=== PATIENT | female | born 1935 | race Caucasian/White ===

== ENCOUNTER 2017-09-17 10:00 | Inpatient (IN) | payer OTHER ==
--- NOTE | 2017-09-17 10:09 | EDPHY ---
H & P Time Seen by Provider: 09/17/17 10:07 HPI/ROS: CHIEF COMPLAINT: Expressive aphasia HISTORY OF PRESENT ILLNESS: 81-year-old female with a history of prior CVA and cardiac disease presents with expressive aphasia. She was at the dining table just prior to arrival, when she slumped over and fell to the floor. She awoke promptly and had expressive aphasia. The expression of aphasia has now completely resolved. She feels back to normal. She does not know whether she is on anticoagulation or not. REVIEW OF SYSTEMS: complete 10 point ROS negative except at noted in the HPI - Physical Exam Exam: This exam is performed after return from CT: General Appearance: Alert, pleasant, difficulty with word-finding Eyes: Pupils equal and round, no conjunctival pallor or injection ENT, Mouth: Mucous membranes moist Neck: Normal inspection Respiratory: Lungs are clear to auscultation Cardiovascular: Regular rate and rhythm Gastrointestinal: Abdomen is soft and nontender Neurological: Alert, oriented to person and place, difficulty with word finding , right lower extremity weakness, able to raise the right lower extremity off the gurney slightly and transiently Skin: Warm and dry Extremities: Nontender, no pedal edema Psychiatric: Mood and affect normal Constitutional: Initial Vital Signs Heart Rate 49 L 09/17/17 10:14 Respiratory Rate 18 09/17/17 10:14 Blood Pressure 186/80 H 09/17/17 10:14 O2 Sat (%) 94 09/17/17 10:14 O2 Delivery Mode Room Air Allergies/Adverse Reactions: No Known Allergies Allergy (Unverified 09/17/17 10:19) Home Medications: Medication Instructions Recorded Albuterol [Proventil Inhaler HFA 1 - 2 puffs IH Q4H PRN 09/17/17 (*)] Atorvastatin Calcium [Lipitor 40 40 mg PO HS 09/17/17 mg (*)] Clopidogrel Bisulfate [Plavix (*)] 75 mg PO DAILY 09/17/17 Fluticasone/Salmeter 100/50Mcg 1 puffs IH BID 09/17/17 [Advair 100/50 (*)] Metoprolol Tartrate [Lopressor 50 50 mg PO BID 09/17/17 mg (*)] OLANZapine [Zyprexa] 5 mg PO HS 09/17/17 Potassium Chloride [Klor-Con 10] 20 meq PO DAILY 09/17/17 Medical Decision Making - Diagnostics EKG Interpretation: EKG interpreted by me reveals sinus bradycardia, rate 49, diffuse T-wave changes , nonspecific. Interpretation: Borderline EKG Imaging Results: Altered mental status including but not limited to hypoglycemia, infectious process, electrolyte abnormality, head injury, CVA, and intoxicants. ED Course/Re-evaluation: This patient presents as a stroke alert. My initial hallway exam reveals normal speech, right lower extremity weakness. She was sent directly to CT scan. Dr. Peraza from [facility] consulted while the patient was in CT scan. [facility] was contacted for medication list. She is apparently taking Coumadin, though she states that she recently stopped coumadin. She self administers her medications, so Varun is unable to verify this. 1030am Dr. Peraza interviewed and examined the patient. He feels that she is not a tPA candidate, as her symptoms are resolving. He suggests CTA of the head and neck. If her INR is less than 1.6 and she develops worsening symptoms , he requests that we call him back for consideration of tPA. Creatinine 1.7, d /w Dr. Booth, will proceed with CTA and give pt gentle IVF. CTA of the head and neck revealed no evidence of thrombus. Bilateral ICA atherosclerosis. Differential Diagnosis: Altered mental status including but not limited to hypoglycemia, infectious process, electrolyte abnormality, head injury, CVA, and intoxicants. - Data Points Laboratory Results: Laboratory Results 09/17/17 10:19 09/17/17 10:19 Medications Given: Acetaminophen (Tylenol) 650 mg PO Q4HRS PRN PRN Reason: Pain, Mild/Fever, Can Take PO Stop: 03/16/18 16:45 Last Admin: 09/17/17 19:36 Dose: 650 mg Albuterol/Ipratropium (Duoneb) 3 ml IH Q6HRS PRN PRN Reason: Short of Breath/Dyspnea Stop: 03/16/18 11:52 Last Admin: 09/17/17 12:04 Dose: 3 ml Atorvastatin Calcium (Lipitor) 40 mg PO HS ROSA MARIA Stop: 03/16/18 20:59 Last Admin: 09/17/17 20:01 Dose: 40 mg Clopidogrel Bisulfate (Plavix) 75 mg PO DAILY ROSA MARIA Stop: 03/17/18 08:59 Last Admin: 09/18/17 10:04 Dose: 75 mg Sodium Chloride (Ns) 1,000 mls @ 75 mls/hr IV CONT ROSA MARIA Stop: 09/19/17 06:19 Last Admin: 09/17/17 19:32 Dose: 1,000 mls Olanzapine (Olanzapine) 5 mg PO HS ROSA MARIA Stop: 03/16/18 20:59 Last Admin: 09/17/17 20:01 Dose: 5 mg Fluticasone/Salmeterol (Advair) 1 puffs IH BID ROSA MARIA Stop: 03/16/18 20:59 Last Admin: 09/18/17 08:34 Dose: Not Given Discontinued Medications Acetaminophen (Tylenol) 1,000 mg PO ONCE ONE Stop: 09/17/17 11:49 Last Admin: 09/17/17 11:52 Dose: 1,000 mg Aspirin (Aspirin) 81 mg PO ONCE ONE Stop: 09/17/17 17:03 Last Admin: 09/17/17 17:44 Dose: 81 mg Sodium Chloride (Ns) 500 mls @ 1,000 mls/hr IV EDNOW ONE PRN Reason: Protocol Stop: 09/17/17 11:04 Last Admin: 09/17/17 11:01 Dose: 500 mls Departure - Departure Disposition: [facility]
--- NOTE | 2017-09-17 10:22 | CPEKG ---
Heart Rate: 49 RR Interval: 1224 P-R Interval: 176 QRSD Interval: 74 QT Interval: 460 QTC Interval: 416 P Waddy: 53 QRS Waddy: 6 T Wave Waddy: -49 EKG Severity - BORDERLINE ECG - EKG Impression: SINUS BRADYCARDIA EKG Impression: BORDERLINE T ABNORMALITIES, INFERIOR LEADS Electronically Signed By: Liz Calderon 17-Sep-2017 15:01:25
[2017-09-17] MEDS ORDERED: NS 500 ML IV ONE (10:35)
[2017-09-17 10:36] LABS: INR 1.05 (0.83-1.16); PROTIME(PATIENT) 13.9 SEC (12.0-15.0)
[2017-09-17] MEDS ORDERED: IOPAMIDOL (ISOVUE 370) 100 ML BTL IV ONE (10:40)
[2017-09-17 10:52] LABS: PLATELET COUNT 129 10^3/uL (150-400)
[2017-09-17] MEDS ORDERED: ACETAMINOPHEN 500 MG TAB PO ONE (11:48)
[2017-09-17] MEDS ORDERED: ACETAMINOPHEN 500 MG TAB ONE (11:50)
[2017-09-17] MEDS ORDERED: IPRATROPIUM/ALBUTEROL 3 ML DEYVIAL IH PRN (11:53)
[2017-09-17] MEDS ORDERED: IPRATROPIUM/ALBUTEROL 3 ML DEYVIAL ONE (12:03)
[2017-09-17] MEDS ORDERED: ONDANSETRON 4 MG/2 ML VIAL IVP PRN (16:46)
[2017-09-17] MEDS ORDERED: ONDANSETRON DISINTEGRATING 4 MG TAB PO PRN (16:46)
--- NOTE | 2017-09-17 16:56 | PDGENHP ---
History and Physical - Chief Complaint confusion, expressive aphasia - History of Present Illness This is a 81 yo female with hx of CVA, HLD, and HTN who was at her long-term and noted to be confused. She was asked questions and was not able to respond and EMS was called. It was initially reported that Expressive Aphasia was the primary complaint, but upon discussion with the pt's daughter, the pt was reportedly confused and unable to answer questions and slouched over a table. The pt cannot recall any events. The patient is able to speak at this time w/o any difficulty. She does not appear confused but the pt's daughter says she is not back to baseline. She does not have any focal deficits. She presented to the E.D. with stroke alert. [facility] was called. No TPA CT Brain was negative. CTA Head negative CTA Neck shows small ulcerated plaque in the left carotid bulb.? source of TIA EKG shows sinus bradycardia She takes Metoprolol 50mg bid for HTN. This was recently increased She has a hx of CVA, one per her daughter, and had been started on Warfarin for this?? She had a retroperitoneal bleed in June which was managed at [facility] and at that time she was transitioned to Plavix. It is unclear if she has ever been on Aspirin alone. She does not have a hx of CAD. She does have a hx of AAA which is being monitored closely. She denies urinary symptoms, no resp symptoms either. PMHx: Chronic renal insufficiency, stage 3, unclear Cr baseline HLD AAA CVA Kidney failure Social: lives in long-term Fmx: [place] History Information - Allergies/Home Medication List Allergies/Adverse Reactions: No Known Allergies Allergy (Unverified 09/17/17 10:19) Home Medications: Albuterol [Proventil Inhaler HFA (*)] 1 - 2 puffs IH Q4H PRN 09/17/17 [Last Taken Unknown] Atorvastatin Calcium 09/17/17 [Last Taken Unknown] Atorvastatin Calcium [Lipitor 40 mg (*)] 40 mg PO HS 09/17/17 [Last Taken Unknown] Clopidogrel Bisulfate [Plavix (*)] 75 mg PO DAILY 09/17/17 [Last Taken Unknown] Fluticasone/Salmeter 100/50Mcg [Advair 100/50 (*)] 1 puffs IH BID 09/17/17 [ Last Taken Unknown] Metoprolol Tartrate [Lopressor 50 mg (*)] 50 mg PO BID 09/17/17 [Last Taken Unknown] OLANZapine [Zyprexa] 5 mg PO HS 09/17/17 [Last Taken Unknown] Potassium Chloride [Klor-Con 10] 20 meq PO DAILY 09/17/17 [Last Taken Unknown] I have personally reviewed and updated: medical history, social history - Social History Smoking Status: Light smoker Review of Systems Review of Systems: ROS: 10pt was reviewed & negative except for what was stated in HPI & below Physical Exam Physical Exam: Temp Pulse Resp BP Pulse Ox 37.3 C 55 L 18 143/88 H 92 09/17/17 15:23 09/17/17 15:23 09/17/17 15:23 09/17/17 15:23 09/17/17 15:23 Constitutional: no apparent distress Eyes: PERRL, EOMI Ears, Nose, Mouth, Throat: moist mucous membranes Cardiovascular: regular rate and rhythym, No edema Respiratory: no respiratory distress, no rales or rhonchi, clear to auscultation Gastrointestinal: normoactive bowel sounds, soft, non-tender abdomen Skin: warm Neurologic: AAOx3, CN II-XII Intact, No facial droop Psychiatric: interacting appropriately, not anxious, not encephalopathic Lymph, Heme, Immunologic: No petechiae Lab Data & Imaging Review 09/17/17 10:19 09/17/17 10:19 WBC 6.51 10^3/uL (3.80-9.50) 09/17/17 10:19 RBC 4.69 10^6/uL (4.18-5.33) 09/17/17 10:19 Hgb 13.7 g/dL (12.6-16.3) 09/17/17 10:19 POC Hgb 14.6 gm/dL (12.6-16.3) 09/17/17 10:23 Hct 43.7 % (38.0-47.0) 09/17/17 10:19 POC Hct 43 % (38-47) 09/17/17 10:23 MCV 93.2 fL (81.5-99.8) 09/17/17 10:19 MCH 29.2 pg (27.9-34.1) 09/17/17 10:19 MCHC 31.4 g/dL (32.4-36.7) L 09/17/17 10:19 RDW 14.3 % (11.5-15.2) 09/17/17 10:19 Plt Count 129 10^3/uL (150-400) L 09/17/17 10:19 MPV 9.0 fL (8.7-11.7) 09/17/17 10:19 Neut % (Auto) 65.9 % (39.3-74.2) 09/17/17 10:19 Lymph % (Auto) 22.6 % (15.0-45.0) 09/17/17 10:19 Bent % (Auto) 8.9 % (4.5-13.0) 09/17/17 10:19 Eos % (Auto) 1.5 % (0.6-7.6) 09/17/17 10:19 Baso % (Auto) 0.6 % (0.3-1.7) 09/17/17 10:19 Nucleat RBC Rel Count 0.0 % (0.0-0.2) 09/17/17 10:19 Absolute Neuts (auto) 4.29 10^3/uL (1.70-6.50) 09/17/17 10:19 Absolute Lymphs (auto) 1.47 10^3/uL (1.00-3.00) 09/17/17 10:19 Absolute Monos (auto) 0.58 10^3/uL (0.30-0.80) 09/17/17 10:19 Absolute Eos (auto) 0.10 10^3/uL (0.03-0.40) 09/17/17 10:19 Absolute Basos (auto) 0.04 10^3/uL (0.02-0.10) 09/17/17 10:19 Absolute Nucleated RBC 0.00 10^3/uL (0-0.01) 09/17/17 10:19 Immature Gran % 0.5 % (0.0-1.1) 09/17/17 10:19 Immature Gran # 0.03 10^3/uL (0.00-0.10) 09/17/17 10:19 PT 13.9 SEC (12.0-15.0) 09/17/17 10:19 INR 1.05 (0.83-1.16) 09/17/17 10:19 APTT 33.9 SEC (23.0-38.0) 09/17/17 10:19 POC Sodium 145 mEq/L (135-145) 09/17/17 10:23 Sodium 147 mEq/L (135-145) H 09/17/17 10:19 POC Potassium 4.2 mEq/L (3.3-5.0) 09/17/17 10:23 Potassium 4.5 mEq/L (3.5-5.2) 09/17/17 10:19 POC Chloride 109 mEq/L (97-110) 09/17/17 10:23 Chloride 108 mEq/L (97-110) 09/17/17 10:19 Carbon Dioxide 25 mEq/l (22-31) 09/17/17 10:19 Anion Gap 14 mEq/L (8-16) 09/17/17 10:19 POC BUN 27 mg/dL (7-23) H 09/17/17 10:23 BUN 26 mg/dL (7-23) H 09/17/17 10:19 Creatinine 1.7 mg/dL (0.6-1.0) H 09/17/17 10:19 POC Creatinine 1.7 mg/dL (0.6-1.0) H 09/17/17 10:23 Estimated GFR 29 09/17/17 10:19 Glucose 93 mg/dL (70-100) 09/17/17 10:19 POC Glucose 96 mg/dL (70-100) 09/17/17 10:23 Calcium 9.2 mg/dL (8.5-10.4) 09/17/17 10:19 Troponin I < 0.012 ng/mL (0.000-0.034) 09/17/17 10:19 Urine Color PALE YELLOW 09/17/17 12:00 Urine Appearance CLEAR 09/17/17 12:00 Urine pH 7.0 (5.0-7.5) 09/17/17 12:00 Ur Specific [place] 1.016 (1.002-1.030) 09/17/17 12:00 Urine Protein NEGATIVE (NEGATIVE) 09/17/17 12:00 Urine Ketones NEGATIVE (NEGATIVE) 09/17/17 12:00 Urine Blood NEGATIVE (NEGATIVE) 09/17/17 12:00 Urine Nitrate NEGATIVE (NEGATIVE) 09/17/17 12:00 Urine Bilirubin NEGATIVE (NEGATIVE) 09/17/17 12:00 Urine Urobilinogen NEGATIVE EU (0.2-1.0) 09/17/17 12:00 Ur Leukocyte Esterase NEGATIVE (NEGATIVE) 09/17/17 12:00 Urine Glucose NEGATIVE (NEGATIVE) 09/17/17 12:00 Assessment & Plan Assessment: #Sinus Bradycardia #Hx of HTN #transient encephalopathy #?TIA #ulcerated plaque in left Carotid Bulb #HLD #chronic renal failure, stage III. #Psych: cont Zyprexa Plan: It is unclear if the pt has expressive aphasia or was confused due to other etiology. She is noted to be bradycardic. In addition to the possibility of TIA , she could have a had low cerebral perfusion due to the bradycardia or hypotension. Her daughter is concerned that she may have an underlying infection , but I dont see any obvious e/o of this. UA was unremarkable. She doesnt have Leukocytosis. I will hold her Metoprol today. check TTE, telemetry. Neuro to see tomorrow. I will give her Aspirin in addition to her scheduled Plavix. She was previously on AC with coumadin for unclear reason. She denies a hx of Afib. She did have a retroperitoneal bleed and she was taken off Coumadin Will provide IVF hydration in light of contrast given on a pt with advance renal disease SCDs DNR
[2017-09-17] MEDS ORDERED: NS 1,000 ML IV SCH (17:00)
[2017-09-17] MEDS ORDERED: ASPIRIN 81 MG CHEWABLE TAB PO ONE (17:02)
--- NOTE | 2017-09-17 17:25 | PDMN ---
Medical Necessity Medical necessity: Patient meets inpatient criteria per physician note and [facility] M -360 TIA (stroke alert called for new confusion/expressive aphasia; persistent symptoms: ongoing confusion after resolution of expressive aphasia; history of HTN, past CVA, then retroperitoneal bleed in Jun, 2017 while anticoagulated on warfarin; hx CKD, stage 3, and known AAA; anticipated LOS > 2 midnights for ongoing IV hydration, med adjustment, PT/OT eval, neuro consult.)
[2017-09-17] MEDS: ACETAMINOPHEN 325 MG TAB PO PRN (19:36)
[2017-09-17] MEDS: ATORVASTATIN CALCIUM 40 MG TAB PO SCH (20:01)
[2017-09-17] MEDS: OLANZapine 5 MG TAB PO SCH (20:01)
[2017-09-17] MEDS: FLUTICASONE/SALMETER 100/50MCG DISKUS IH SCH (21:44)
[2017-09-18 05:02] LABS: PLATELET COUNT 123 10^3/uL (150-400)
[2017-09-18] MEDS: FLUTICASONE/SALMETER 100/50MCG DISKUS IH SCH ×2 (08:34→21:59)
--- NOTE | 2017-09-18 09:45 | NEUROPROG ---
Assessment: [id number] - Neurology Consult: - CC: Dr. Nikko Angulo consulted neurology for confusion. Results placed in EMR for his review. - HPI: The patient is a [facility] with a prior stroke. It was reported she was on warfarin for this but in June 2017 had a retroperitoneal bleed so was changed to Plavix. She was noted to be confused on 09/17/17 so was brought to [facility] ER. A head CT and CTA head/neck showed no acute changes but telemetry did show afib/aflutter. The patient cannot recall being confused and did not appear confused in the ER but her daughter reported she did not seem to be at her baseline. She had no focal neurologic deficits. Pt initially seen on 09/18/17. She reported her confusion had resolved and she now felt back to normal. Her telemetry indicated she had bouts of atrial fibrillation. Her neurologic exam on 09/18/17 was non-focal. I ordered a brain MRI w/o con to further evaluate her confusion. - PMHx: chronic renal disease, HLD, AAA, stroke, retroperitoneal bleed on warfarin in June 2017 - Home Meds: albuterol, Lipitor 40 mg qd, plavix 75 mg qd, metoprolol, flonase/ salmeter, zyprexa, Klor-Con - SHx: [facility] in [facility] FHx: [place] - ROS: Pt denied acute fever, total vision loss, active severe chest pain, respiratory failure, total body severe rash, total bowel/bladder incontinence, psychosis, active seizures, or active bleeding - O: VS reviewed General: Alert Eyes: Fundoscopic exam not able to visualize optic disks CV: Heart RRR, no murmur, no carotid bruit Lungs: Clear to auscultation bilaterally, no rhonchi or rales Neuro: - Mental: . Oriented x person/date . concentration appears normal . speech fluency/comprehension normal . memory appears normal . fund of knowledge appear intact - Cranial Nerves: . II: PERRL, VFFTC . III/IV/: EOMI, no nystagmus, normal smooth pursuits, no Ptosis . V: facial sensation intact to LT . VII: face symmetric to eye closure and smile . VIII: hearing intact to conversation . IX/X: uvula raises symmetrically . XI: SCM 5/5 B/L strength . XII: tongue protrudes midline w/nl strength - Motor: . Tone: normal tone in all 4 extremity . Strength: no pronator drift, strength 5/5 throughout (B/L delt, bic, tri, hand lining presser, hf/he, df/pf) - Reflexes: B/L bic 2/4 - Sensory: all 4 extremity intact to light touch - Coord: [id number] wnl, RICCARDO wnl, [id number] wnl - Gait: deferred - NIH SS 0 - Labs: 09/17/17- CBC Plt 129L, Chem BUN 27H Ct 1.7H - Rads: 09/17/17- Head CT: Loss of culver-white differentiation in the right occipital lobe , which could be related to subacute or old infarct. Diffuse cerebral atrophy with periventricular and subcortical low attenuation, consistent with chronic microvascular ischemic gliosis. (I personally visualized the images on 09/17/17) 09/17/17- CTA head/neck: no significant carotid stenosis, small ulcerated plaque in L carotid bulb 09/17/17- Telemetry: afib/aflutter - Assessment: 1. Confusion on 09/17/17: Unclear cause but patient was noted on telemetry to be in afib at times. Will further assess with brain MRI w/o con. - 2. Atrial fibrillation: Defer management to hospitalist - Plan: - Continue Plavix 75 mg qd however we will need to consider changing to oral anticoagulation at discharge if her telemetry reading showing afib is correct ( prior stroke and afib is indication for anticoagulation) - Brain MRI w/o con to evaluate for stroke - TTE - PT/OT consult for any rehab needs - LDL goal < 70, lab pending - H1AC goal < 7.0, lab pending - Blood pressure goal < 140/90 - F/U in neurology clinic 1-4 weeks after hospital discharge Objective: Vital Signs Temp Pulse Resp BP Pulse Ox 36.9 C 57 L 16 160/95 H 98 09/18/17 07:56 09/18/17 07:56 09/18/17 07:56 09/18/17 07:56 09/18/17 07:56 Laboratory Results 09/18/17 04:50 09/18/17 04:50 09/17/17 09/18/17 09/19/17 05:59 05:59 05:59 Intake Total 750 Balance 750 PT 13.9 SEC (12.0-15.0) 09/17/17 10:19 INR 1.05 (0.83-1.16) 09/17/17 10:19 Allergies/Adverse Reactions: No Known Allergies Allergy (Unverified 09/17/17 10:19)
[2017-09-18] MEDS: CLOPIDOGREL BISULFATE 75 MG TAB PO SCH (10:04)
--- NOTE | 2017-09-18 10:31 | ECHO ---
[email or web address] [address] [address] Main: [phone] Fax: Transthoracic Echocardiogram Name: ANGELES AGOSTO MR#: [id number] Study Date: 09/18/2017 Study Time: 07:46 AM Date of : 1935 Age: 81 year(s) Height: 167.6 cm (66 in.) Weight: 60.78 kg (134 lb.) BSA: 1.69 m2 Gender: Female Examination: Echo Indication: Bradycardia/TIA Image Quality: Contrast: Requested by: Nikko Angulo BP: 154 mmHg/99 mmHg Heart Rate: Rhythm: Indication: Bradycardia/TIA Procedure Staff Lens Mold Setter: Kaleigh Gray RDCS Reading Physician: Emanuel Jackson MD Requesting Provider: Conclusions: Normal global systolic LV function. The ejection fraction is estimated to be 65-70 %. Mild mitral valve regurgitation is present. Trivial to mild aortic valve regurgitation. Mild tricuspid regurgitation is present. The pulmonary artery pressure is moderately increased. RVSP is 67mmHG.. Measurements: Chambers Valvular Assessment AV/MV Valvular Assessment TV/PV Normal Normal Normal Name Value Range Name Value Range Name Value Range Ao Shelby (2D): 2.8 cm (1.4 cm-2.6 AV Vmax: 1.38 m/s (1 m/s-1.7 TR Vmax: 3.94 mm/s ( - ) cm) m/s) TR PGmax: 62 mmHg ( - ) IVSd (2D): 0.8 cm (0.6 cm-1.1 AV maxP mmHg ( - ) syst. PAP: 67 mmHg ( - ) cm) AV meanP mmHg ( - ) LVDd (2D): 4.5 cm (3.9 cm-5.3 AR (PHT): 651 ms ( - ) cm) MV E Vmax: 1.02 m/s ( - ) LVDs (2D): 2.6 cm (2.1 cm-4 MV A Vmax: 0.52 m/s ( - ) cm) MV E/A: 1.96 ( - ) LVPWd (2D): 1.0 cm ( - ) LVEF (MOD4): 72 % (>=55 %) EF Range: 65-70 % Continued Measurements: Chambers Valvular Assessment AV/MV Valvular Assessment TV/PV Name Value Name Value Name Value LADs Lon.8 cm MV E/E' Septal: 21.30 CVP (est.): 5 mmHg LA Area: 14.9 cm2 Patient: ANGELES AGOSTO Study Date: 09/18/2017 Page 1 of 2 07:46 AM MV E/E' Lateral: 13.40 AR Vmax: 5.28 cm/s Findings: Left Ventricle: Normal size left ventricle. Mild concentric LV hypertrophy. Normal global systolic LV function. The ejection fraction is estimated to be 65-70 %. No regional wall motion abnormality. Diastolic dysfunction is present. . Right Ventricle: Normal size right ventricle. Left Atrium: The left atrium is normal in size. Right Atrium: The right atrium is normal in size. Mitral Valve: Mild mitral valve regurgitation is present. Calcific anterior mitral valve leaflet.. Aortic Valve: The aortic valve is normal in appearance and function. Trivial to mild aortic valve regurgitation. Tricuspid Valve: The tricuspid valve is normal in appearance and function. Mild tricuspid regurgitation is present. The pulmonary artery pressure is moderately increased. RVSP is 67mmHG.. Pulmonic Valve: Pulmonary valve not well visualized. Aorta: The aorta is normal. Pericardium: Trace anterior pericardial effusion.. (No Signature Object) Patient: ANGELES AGOSTO Study Date: 09/18/2017 Page 2 of 2 07:46 AM [id number]
--- NOTE | 2017-09-18 15:42 | HOSPPROG ---
Hospitalist Progress Note Assessment/Plan: #Sinus Bradycardia #?Afib on Tele. -Exam does not show Irr/irr -EKG previously showed sinus Alberto #Hx of HTN #transient encephalopathy #?TIA -negative w/u thus far including negative MRI #ulcerated plaque in left Carotid Bulb #HLD #chronic renal failure, stage III. #Psych: cont Zyprexa Plan: The pt has no confusion or expressive aphasia at this time. She does cont to have bradycardia. Tele has shown ?Afib. I will recheck an EKG and continue to monitor overnight. If she really does have Afib, we can stop the Plavix and switch her to Coumadin on discharge likely tomorrow. She has a hx of retroperitoneal bleed and she will need close monitoring of her INR. Would not bridge. If no Afib is diagnosed, then she will need to follow with Cards for event monitor and we can continue the Plavix alone. IF bradycardia worse, will need cards consult. Cont to hold Metoprolol As for the etiology of confusion and aphasia, one possibility is the TIA. she could have also had low cerebral perfusion due to the bradycardia or hypotension. There is no e/o infection. UA was normal PT SCDs DNR Plan per above was discussed with Neurology Subjective: feels better. no cp or sob. no n/v. + bradycardia Objective: Vital Signs Temp Pulse Resp BP Pulse Ox 36.4 C 57 L 16 140/91 H 94 09/18/17 11:55 09/18/17 11:55 09/18/17 11:55 09/18/17 11:55 09/18/17 11:55 Laboratory Results 09/18/17 04:50 09/18/17 04:50 09/17/17 09/18/17 09/19/17 05:59 05:59 05:59 Intake Total 750 300 Balance 750 300 PT 13.9 SEC (12.0-15.0) 09/17/17 10:19 INR 1.05 (0.83-1.16) 09/17/17 10:19 - Physical Exam Constitutional: no apparent distress Eyes: PERRL, EOMI Ears, Nose, Mouth, Throat: moist mucous membranes Cardiovascular: bradycardia Respiratory: no respiratory distress, no rales or rhonchi, clear to auscultation Gastrointestinal: normoactive bowel sounds, soft, non-tender abdomen Skin: warm Neurologic: AAOx3 Psychiatric: interacting appropriately, not anxious, not encephalopathic Lymph, Heme, Immunologic: No petechiae ICD10 Worksheet Patient Problems: Problems Problem Status Onset TIA (transient ischemic attack) Acute - ICD10 Problem Qualifiers (1) TIA (transient ischemic attack)
--- NOTE | 2017-09-18 16:24 | ASMTCMCOM ---
CM Note CM Note Notes: Pt in for CVA, has a history of CVA. Pt does have bradycardia. Neurology consulting. [facility] and has local family support. PT/OT rec home. CM to continue to follow. Date Signed: 09/18/2017 04:23 PM Electronically Signed By:MERLENE Luong
--- NOTE | 2017-09-18 16:40 | CPEKG ---
Heart Rate: 62 RR Interval: 968 P-R Interval: 172 QRSD Interval: 78 QT Interval: 440 QTC Interval: 447 P Acworth: 60 QRS Acworth: 5 T Wave Acworth: -37 EKG Severity - BORDERLINE ECG - EKG Impression: SINUS RHYTHM EKG Impression: NON-SPECIFIC ST DEPRESSION INFERIOR AND LATERAL LEADS, CONSIDER INFERIOR AND EKG Impression: LATERAL ISCHEMIA. Electronically Signed By: Gunnar Fairbanks 19-Sep-2017 06:46:11
[2017-09-18] MEDS: OLANZapine 5 MG TAB PO SCH (21:19)
[2017-09-18] MEDS: ATORVASTATIN CALCIUM 40 MG TAB PO SCH (21:19)
[2017-09-19] MEDS ORDERED: hydrALAZINE 10 MG TAB PO PRN (06:28)
[2017-09-19] MEDS: FLUTICASONE/SALMETER 100/50MCG DISKUS IH SCH ×2 (09:29→21:49)
[2017-09-19] MEDS: CLOPIDOGREL BISULFATE 75 MG TAB PO SCH (10:30)
[2017-09-19] MEDS ORDERED: METOPROLOL TARTRATE 25 MG TAB PO SCH (11:15)
[2017-09-19] MEDS: amLODIPine BESYLATE 5 MG TAB PO SCH (12:43)
--- NOTE | 2017-09-19 13:21 | NEUROPROG ---
Assessment: [id number] - Neurology Consult: - CC: F/U for rhabdomyolysis causing b/l proximal leg weakness - Narrative Summary: Pt is homeless. He noted on 09/15/17 his left greater than right leg felt weak. He denied urinary incontinence but has some lower and mid back pain. He denied fever or recent IV drug abuse (last abused in 2014). Weakness was proximal legs and progressed to the point of preventing ambulation so he came to the [facility] ER on 09/17/17. He also complained of leg pain. Neurosurgery saw the patient and found no indications for surgery. CK was very high at 7,155 so it appears he has rhabdomyolysis to explain his symptoms. I initially saw the patient on . His CK was decreasing to the 1999s. He reported his legs felt less weak and painful today but were still a problem. His neurologic exam on 09/18/17 showed bilateral proximal leg weakness. He was improving. - HPI: F/U 09/19/17. Pt denied new complaints. His CK continues to downtrend to 916 and he is clinically improving. Blood cultures show no growth, aldolase still pending. - PMHx: IV drug abuse, asthma vs panic disorder, antisocial personality disorder, hernia - SHx: +tobacco, homeless FHx: NC - ROS: Pt denied acute fever, total vision loss, active severe chest pain, respiratory failure, total body severe rash, total bowel/bladder incontinence, psychosis, active seizures, or active bleeding - Labs: 09/17/17- CBC WBC 19.65H, Chem CO2 17L Anion gap 22H, CK 7155H 09/18/17- CBC WBC 13.99H, ESR 11, CMP AST 252H, ALT 86H, CK 2846, CRP 64.4H, TSH wnl, B12 604, Hep C ab neg, HIV 1 and 2 negative, 09/19/17- CBC unremarkable, CK 916H - Rads: 09/17/17- T/L Spine MRI w/o con: mild lumbar degenerative changes w/o acute findings, normal thoracic spine (I personally visualized the images on 09/17/17) - Assessment: 1. Rhabdomyolysis causing bilateral proximal leg weakness/pain: Unclear cause but inflammatory myopathy or metabolic myopathy (alcohol or drug abuse can cause ) are possible. Condition is improving with decreasing CK values and improving clinical symptoms. - Plan: - Aldolase pending to look for any inflammatory myopathy - PT/OT consult to determine any rehab needs - Symptoms are improving with IV fluid, no additional therapy needed at this time - F/U in neurology clinic 1-4 weeks after discharge, we can consider an EMG/NCS at that time to further investigate the cause of his myopathy - 35 min spent with patient, majority of time spent counseling on condition to include prognosis and therapeutic plan. Objective: Vital Signs Temp Pulse Resp BP Pulse Ox 36.4 C 69 23 H 165/102 H 93 09/19/17 11:49 09/19/17 11:49 09/19/17 11:49 09/19/17 12:43 09/19/17 11:49 Laboratory Results 09/18/17 04:50 09/18/17 04:50 09/18/17 09/19/17 09/20/17 05:59 05:59 05:59 Intake Total 750 840 Balance 750 840 PT 13.9 SEC (12.0-15.0) 09/17/17 10:19 INR 1.05 (0.83-1.16) 09/17/17 10:19 Allergies/Adverse Reactions: No Known Allergies Allergy (Unverified 09/17/17 10:19)
--- NOTE | 2017-09-19 13:23 | NEUROPROG ---
Assessment: [id number] - Neurology Consult: - CC: F/U for confusion - Narrative Summary: The patient is a senior living resident with a prior stroke. It was reported she was on warfarin for this but in June 2017 had a retroperitoneal bleed so was changed to Plavix. She was noted to be confused on 09/17/17 so was brought to [facility] ER. A head CT and CTA head/neck showed no acute changes but telemetry did show afib/aflutter. The patient cannot recall being confused and did not appear confused in the ER but her daughter reported she did not seem to be at her baseline. She had no focal neurologic deficits. Pt initially seen on 09/18/17. She reported her confusion had resolved and she now felt back to normal. Her telemetry indicated she had bouts of atrial fibrillation. Her neurologic exam on 09/18/17 was non-focal. I ordered a brain MRI w/o con to further evaluate her confusion. - HPI: F/U 09/19/17. No new issues overnight. Brain MRI shows no stroke or acute changes and TTE was generally unremarkable. - PMHx: chronic renal disease, HLD, AAA, stroke, retroperitoneal bleed on warfarin in June 2017 - Home Meds: albuterol, Lipitor 40 mg qd, plavix 75 mg qd, metoprolol, flonase/ salmeter, zyprexa, Klor-Con - SHx: lives in senior living FHx: daughter alive - ROS: Pt denied acute fever, total vision loss, active severe chest pain, respiratory failure, total body severe rash, total bowel/bladder incontinence, psychosis, active seizures, or active bleeding - Labs: 09/17/17- CBC Plt 129L, Chem BUN 27H Ct 1.7H 09/18/17- H1AC 5.5, LDL 40L - Rads: 09/17/17- Head CT: Loss of culver-white differentiation in the right occipital lobe , which could be related to subacute or old infarct. Diffuse cerebral atrophy with periventricular and subcortical low attenuation, consistent with chronic microvascular ischemic gliosis. 09/17/17- CTA head/neck: no significant carotid stenosis, small ulcerated plaque in L carotid bulb 09/17/17- Telemetry: afib/aflutter 09/17/17- TTE: EF 65-70%, no cardiac thrombus reported 09/18/17- Brain MRI w/o con: mild atrophy, no acute stroke or changes, old R occipital cortical CVA and old R thalamic lacunar CVA, severe CMVD - Assessment: 1. Confusion on 09/17/17 (resolved): Unclear cause but patient was noted on telemetry to possibly be in afib at times. The confusion may have been a TIA, acute confusional state (possibly form bradycardia), or from a cryptogenic cause. It has resolved. - 2. Possible Atrial fibrillation: Continue Plavix 75 mg qd however would recommend changing to oral anticoagulation at discharge if her telemetry reading showing afib is correct (prior stroke and afib is indication for anticoagulation), if no afib is found then continue Plavix 75 mg qd and prolonged teletypesetter monitor to assess for paroxysmal afib - 3. 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 She requires lifelong stroke risk factor modification: blood pressure < 140/90, H1AC < 7.0, LDL < 70 - Plan: - Continue Plavix 75 mg qd however would recommend changing to oral anticoagulation at discharge if her telemetry reading showing afib is correct ( prior stroke and afib is indication for anticoagulation), if no afib is found then continue Plavix 75 mg qd and prolonged teletypesetter monitor to assess for paroxysmal afib - PT/OT consult for any rehab needs - LDL goal < 70 (40) - H1AC goal < 7.0 (5.5) - Blood pressure goal < 140/90 - F/U in neurology clinic 1-4 weeks after hospital discharge - 35 min spent with patient, majority of time spent counseling on symptoms and treatment options. Objective: Vital Signs Temp Pulse Resp BP Pulse Ox 36.4 C 69 23 H 165/102 H 93 09/19/17 11:49 09/19/17 11:49 09/19/17 11:49 09/19/17 12:43 09/19/17 11:49 Laboratory Results 09/18/17 04:50 09/18/17 04:50 09/18/17 09/19/17 09/20/17 05:59 05:59 05:59 Intake Total 750 840 Balance 750 840 PT 13.9 SEC (12.0-15.0) 09/17/17 10:19 INR 1.05 (0.83-1.16) 09/17/17 10:19 Allergies/Adverse Reactions: No Known Allergies Allergy (Unverified 09/17/17 10:19)
--- NOTE | 2017-09-19 13:47 | HOSPPROG ---
Hospitalist Progress Note Assessment/Plan: * Possible TIA * symptoms resolved. * no convincing evidence of afib - tele pers/reviewed and int - some PAC's * discussed with neuro - will probably need lynx recorder outpatient #Sinus Bradycardia * metoprolol was increased to 50 mg bid 3 weeks ago * will reduce to the 25 mg was on before * HTN * BP high * will add norvasc * watch another night to make sure BP is reasonable #HLD #chronic renal failure, stage III. * recheck creatinine today #Psych: cont Zyprexa Subjective: no new complaints. Wants to go home Objective: Vital Signs Temp Pulse Resp BP Pulse Ox 36.4 C 69 23 H 165/102 H 93 09/19/17 11:49 09/19/17 11:49 09/19/17 11:49 09/19/17 12:43 09/19/17 11:49 Laboratory Results 09/18/17 04:50 09/18/17 04:50 09/18/17 09/19/17 09/20/17 05:59 05:59 05:59 Intake Total 750 840 Balance 750 840 PT 13.9 SEC (12.0-15.0) 09/17/17 10:19 INR 1.05 (0.83-1.16) 09/17/17 10:19 - Physical Exam Constitutional: no apparent distress, appears nourished, not in pain Eyes: anicteric sclera, EOMI Ears, Nose, Mouth, Throat: moist mucous membranes, hearing normal Cardiovascular: regular rate and rhythym, no murmur, rub, or gallop Respiratory: no respiratory distress, no rales or rhonchi, clear to auscultation Skin: warm Neurologic: AAOx3 Psychiatric: interacting appropriately, not anxious, not encephalopathic, thought process linear ICD10 Worksheet Patient Problems: Problems Problem Status Onset TIA (transient ischemic attack) Acute
[2017-09-19] MEDS ORDERED: NICOTINE 7 MG/24 HR PATCH TD SCH ×2 (20:15→21:00)
[2017-09-19] MEDS: METOPROLOL TARTRATE 25 MG TAB PO SCH (20:55)
[2017-09-19] MEDS: OLANZapine 5 MG TAB PO SCH (20:57)
[2017-09-19] MEDS: ATORVASTATIN CALCIUM 40 MG TAB PO SCH (21:00)
[2017-09-19] MEDS: ACETAMINOPHEN 325 MG TAB PO PRN (21:09)
[2017-09-20 07:18] VITALS: BP 134/93
[2017-09-20] MEDS: CLOPIDOGREL BISULFATE 75 MG TAB PO SCH (08:49)
[2017-09-20] MEDS: METOPROLOL TARTRATE 25 MG TAB PO SCH (08:49)
[2017-09-20] MEDS: FLUTICASONE/SALMETER 100/50MCG DISKUS IH SCH (08:50)
[2017-09-20] MEDS: amLODIPine BESYLATE 5 MG TAB PO SCH (08:50)
--- NOTE | 2017-09-20 09:30 | NEUROPROG ---
Assessment: No additional neuro recs. Neurology will sign off. Please see last neurology note for recommendations. Objective: Vital Signs Temp Pulse Resp BP Pulse Ox 36.6 C 59 L 16 134/93 H 96 09/20/17 07:15 09/20/17 08:49 09/20/17 07:15 09/20/17 08:50 09/20/17 07:15 Laboratory Results 09/18/17 04:50 09/20/17 05:27 09/19/17 09/20/17 09/21/17 05:59 05:59 05:59 Intake Total 840 1400 Balance 840 1400 PT 13.9 SEC (12.0-15.0) 09/17/17 10:19 INR 1.05 (0.83-1.16) 09/17/17 10:19 Allergies/Adverse Reactions: No Known Allergies Allergy (Unverified 09/17/17 10:19)
--- NOTE | 2017-09-20 10:17 | PDIAF ---
- Diagnosis Diagnosis: tia Code Status: Do Not Resuscitate - Medication Management Discharge Medications: Medications to Continue on Transfer Albuterol [Proventil Inhaler HFA (*)] 1 - 2 puffs IH Q4H PRN 09/17/17 [Last Taken Unknown] Atorvastatin Calcium [Lipitor 40 mg (*)] 40 mg PO HS 09/17/17 [Last Taken Unknown] Clopidogrel Bisulfate [Plavix (*)] 75 mg PO DAILY 09/17/17 [Last Taken Unknown] Fluticasone/Salmeter 100/50Mcg [Advair 100/50 (*)] 1 puffs IH BID 09/17/17 [ Last Taken Unknown] OLANZapine [Zyprexa] 5 mg PO HS 09/17/17 [Last Taken Unknown] Potassium Chloride [Klor-Con 10] 20 meq PO DAILY 09/17/17 [Last Taken Unknown] Metoprolol Tartrate [Lopressor 25 mg (*)] 25 mg PO BID #60 tab 09/20/17 [Last Taken Unknown] amLODIPine BESYLATE [Norvasc 5 mg (*)] 5 mg PO DAILY #30 tab 09/20/17 [Last Taken Unknown] Discharge Medications: Refer to the Discharge Home Medication list for PRN reason. - Orders Services needed: Home Care, Physical Therapy, Occupational Therapy Home Care Face to Face: I certify that this patient was under my care and that I had the required [id number] encounter meeting the encounter requirements on the discharge day. My findings support the fact that the patient is homebound as defined in Home Care Face to Face Continued: CMS Chapter 7 Medicare Benefits Manual 30.1.1 , The condition of the patient is such that there exists a normal inability to leave home and consequently, leaving home would require a considerable and taxing effort. Diet Recommendation: no restrictions on diet Additional Instructions: Decrease metoprolol to 25 mg twice daily. Start new BP medication - amlodipine Follow up with primary care in 1-2 weeks. Consider lynx potline monitor - Follow Up Care Current Providers and Referrals: Patient,NotPresent [Unknown] - As per Instructions
--- NOTE | 2017-09-20 10:43 | GDS ---
[f rep st] DISCHARGE SUMMARY DISCHARGE DIAGNOSES: 1. Possible transient ischemic attack. 2. Hypertension, uncontrolled. 3. Bradycardia due to recent beta brynn increase. 4. Chronic kidney disease, stage 3. 5. History of abdominal aortic aneurysm. 6. Previous history of cerebrovascular accident. HISTORY: This is an 82-year-old female, who presented with expressive aphasia, confusion. HOSPITAL COURSE: The patient was admitted on a stroke alert. Initial CAT scan did not show any blee d, but did show old infarcts. She had CTA of her neck and head, which did show a small ulcerated endy que in the left carotid bulb and chronically occluded left subclavian artery downstream from the orig in of widely patent left vertebral artery. Brain MRI showed an old infarct in the occipital lobe but no new infarcts in the right occipital lobe. Echocardiogram was done, which did show some pulmonary hypertension but was otherwise normal for age. The patient was monitored on telemetry. She did hav e some PACs but no clear evidence of atrial fibrillation. Neurology consultation was obtained. Apparently she had been on anticoagulation prior and had a retr operitoneal bleed just recently. With no clear evidence of atrial fibrillation, we are deciding not to institute anticoagulation. She should follow up with her primary care physician and industrial methods consultant to further consider possible Lynx monitoring to see if there is any atrial fibrillation. Patient's blood pressure was elevated and she did become bradycardic overnight. Her metoprolol was i ncreased 3 weeks ago from 25-50 to try to treat elevated blood pressure. This was thus decreased lupe k to 25 mg and amlodipine was started at 5 mg daily. Her blood pressure is improved with this regime n and we will continue until she follows up with her primary care doctor. Physical therapy did see t he patient and felt that she was close to baseline but would benefit from home physical therapy. She will be discharged home to her assisted living with home physical therapy. She is instructed to fol low up with primary care doctor within 1-2 weeks. DISCHARGE MEDICATIONS: Her metoprolol was decreased to 25 mg daily. Amlodipine was added at 5 mg da larisa. She is to continue her other medicines which include Plavix as an anti-platelet agent. TIME SPENT: Greater than 30 minutes was spent on discharge. /[id number]/MODL
--- NOTE | 2017-09-20 11:43 | ASMTCMCOM ---
CM Note CM Note Notes: Dc order received. Spoke with PT; recommending pt return to her daughter's house for a couple days, with [facility], before returning to [facility]. Discussed with MD & RN. Met with pt; pt agreeable to dc poc. Spoke with pt's daughter; Rajni agreeable to having pt stay at her home, before returning to [place], but has concerns her mother needs additional supervision. Rajni states she was under the impression, after speaking with [facility] staff members the past few days, her mother was doing well & able to return to [facility] independently. Discussed PT's concerns; Rajni agreeable to having her mother stay for a couple days w/additional [facility] support. Pt has [employer] insurance & has used [facility] in the past; agreeable to using [facility] again. Verified address & phone number. Alerted Christine, at [facility]; willing to accept. Paperwork faxed; confirmed received. Rajni to transport pt home. Updated RN. No other needs at this time. Date Signed: 09/20/2017 11:43 AM Electronically Signed By:Hue Hanson RN
--- NOTE | 2017-09-20 11:44 | ASMTCMCOM ---
CM Note CM Note Notes: Dc paperwork faxed to pt's Assisted Living, [facility]; confirmed received. Date Signed: 09/20/2017 11:44 AM Electronically Signed By:Hue Hanson RN
--- NOTE | 2017-09-20 11:50 | ASDISCHSUM ---
Discharge Information Plan Status:Home with Home Health Medically Cleared to Leave:09/20/2017 Discharge Date:09/20/2017 CM D/C Disposition:Home Health Service [facility] D/C Disposition:[id number] Projected Discharge Date:09/20/2017 12:00 PM Transportation at D/C:Family Discharge Delay Reason: Follow-Up Date:09/20/2017 12:00 PM Discharge Slot: Final Diagnosis: Placement Information Referral Type:*Home Health Care Services Referral ID:[id number] Provider Name:[facility] Address 1[address] [address] Address 2: City:[place] Selection Factors: State:[place] Referral Type:Assisted Living Residence Referral ID:[id number] Provider Name:[facility] Address 1:[address] [place] [address] Address 2: City:[place] Selection Factors: State:[place] Patient Contact Information Contact Name:KAIT Relationship:Son Address:[address] Work Phone: City:[place] Alternate Phone: State/Zip Code: Email: Financial Information Financial Class:Medicare Advantage Plans Primary Plan Desc:[employer] ADV IP Primary Plan Number:[id number] Secondary Plan Desc: Secondary Plan Number: Assessment Information LACE LACE Length of stay for Answers: 4-6 days current admission Acuity / Level of Answers: Yes Care: Did the patient have an inpatient admission? Comorbidities - select Answers: Cerebrovascular disease all that apply (CVA, TIA, aneurysms, vasc ular dementia) Chronic pulmonary disease Coronary Artery Disease History of falls # of Emergency department Answers: 1-2 visits in the last 6 months Score: 16 Date Signed: 09/20/2017 11:48 AM Electronically Signed By:Hue Hanson RN [facility] CM Progress Note CM Note CM Note Notes: Pt in for CVA, has a history of CVA. Pt does have bradycardia. Neurology consulting. Pt resides at [facility] and has local family support. PT/OT rec home. CM to continue to follow. Date Signed: 09/18/2017 04:23 PM Electronically Signed By:MERLENE Luong [facility] CM Progress Note CM Note CM Note Notes: Dc order received. Spoke with PT; recommending pt return to her daughter's house for a couple days, with [facility], before returning to [facility]. Discussed with MD & RN. Met with pt; pt agreeable to dc poc. Spoke with pt's daughter; Rajni agreeable to having pt stay at her home, before returning to [facility], but has concerns her mother needs additional supervision. Rajni states she was under the impression, after speaking with [facility] staff members the past few days, her mother was doing well & able to return to [facility] independently. Discussed PT's concerns; Rajni agreeable to having her mother stay for a couple days w/additional [facility] support. Pt has [employer] insurance & has used [facility] in the past; agreeable to using [facility] again. Verified address & phone number. Alerted Christine, at [facility]; willing to accept. Paperwork faxed; confirmed received. Rajni to transport pt home. Updated RN. No other needs at this time. Date Signed: 09/20/2017 11:43 AM Electronically Signed By:Hue Hanson RN [facility] CM Progress Note CM Note CM Note Notes: Dc paperwork faxed to pt's Assisted [facility], [facility]; confirmed received. Date Signed: 09/20/2017 11:44 AM Electronically Signed By:Hue Hanson RN [facility]
== END 2017-09-20 12:46 | disposition home health service (06) | DRG 69 ==
LOC: F3N 12:42
PROVIDERS: ADMIT Family Medicine; ATTEND Family Medicine
DX: G45.9 Transient cerebral ischemic attack, unspecified (principal); R00.1 Bradycardia, unspecified; I12.9 Hypertensive chronic kidney disease with stage 1 through stage 4 chronic kidney disease, or unspecified chronic kidney disease; N18.3 Chronic kidney disease, stage 3 (moderate); I71.4 Abdominal aortic aneurysm, without rupture; Z87.891 Personal history of nicotine dependence; Z66 Do not resuscitate; Z79.01 Long term (current) use of anticoagulants; Z86.73 Personal history of transient ischemic attack (TIA), and cerebral infarction without residual deficits
CPT/HCPCS: 82947-QW; 97110-GP; 97116-GP; 97161-GP; 97165-GO; 97530-GO; 97535-GO; G8978-GP-CI; G8979-GP-CI; G8987-GO-CJ; G8988-GO-CI; Q9967

== ENCOUNTER 2018-02-23 12:10 | Inpatient (IN) | payer OTHER, MEDICAID ==
--- NOTE | 2018-02-23 12:15 | EDPHY ---
H & P Time Seen by Provider: 02/23/18 12:12 HPI/ROS: CHIEF COMPLAINT: Difficulty speaking stroke alert HISTORY OF PRESENT ILLNESS: Initial history from EMS the patient was found wandering 11:30 a.m. With difficulty speaking. Brought in as a stroke alert with possibly right-sided weakness. Further discussion with [facility] the patient was possibly seen as early as 8: 00 a.m., but this person was unable to elaborate on the degree of interaction with the patient, whether she was truly neurologically normal at that time. Last known normal at the time of arrival is unknown. Patient is unable to give further history of she is having difficulty speaking on arrival. Review of systems on arrival unavailable and unobtainable because of above. PAST MEDICAL HISTORY: Previous TIA, chronic kidney disease stage 4, thoracic aortic aneurysm, COPD Medication record reviewed from [facility] does not show anticoagulation other than Plavix. Social history: [place] patient, [facility] resident General Appearance: Patient is alert but has difficulty speaking Eyes: No scleral icterus. Extraocular motion intact. ENT, Mouth: Normal mucous membranes. Respiratory: Normal respiratory effort, breath sounds equal, lungs are clear to auscultation. Cardiovascular: Regular rate and rhythm. Gastrointestinal: Abdomen is soft and non tender. Neurological: Face is symmetric, she has slight right pronator drift, she has some difficulty with speech and is unable to name my eyeglasses or a pen. She can form some sentences but this is intermittent. She can lift each leg independently off the bed and has good bilateral textile artist strength. She does follow commands. Skin: Warm and dry, no rashes. Musculoskeletal: No peripheral edema. Psychiatric: Not agitated. Emergency Department course/MDM: Patient arrives as a stroke alert by EMS. I met the patient on arrival in the emergency department. Normal pre-hospital glucose. She went directly to CT scanner after brief hallway evaluation. 1229: [facility] staff states they have no idea when last known normal was. EMS states the patient was found wandering at 11:[address] Stallworth from [facility] evaluated the patient via telemedicine robot, and recommends no tPA because not clearly a stroke clinically, appears mostly to be confused, last known normal is unknown time. She agrees with no CTA because of elevated creatinine, admission for workup here at [facility]. Discussed with the daughter after her arrival. The daughter says the patient may have been having some confusion and difficulty with word finding yesterday as well. CT does not show acute bleed intracranial mass, possible subacute stroke present. Seen by hospitalist in ED. Smoking Status: Light smoker Constitutional: Initial Vital Signs Temperature (C) 36.6 C 02/23/18 12:23 Heart Rate 59 L 02/23/18 12:23 Respiratory Rate 14 02/23/18 12:23 Blood Pressure 173/113 H 02/23/18 12:23 O2 Sat (%) 94 02/23/18 12:23 O2 Delivery Mode Room Air Allergies/Adverse Reactions: ibuprofen Allergy (Verified 02/23/18 13:09) Anaphylaxis naproxen [From Aleve] Allergy (Verified 02/23/18 13:09) Anaphylaxis Home Medications: Medication Instructions Recorded Albuterol [Proventil Inhaler HFA 1 - 2 puffs IH Q4H PRN 09/17/17 (*)] Atorvastatin Calcium [Lipitor 40 40 mg PO HS 09/17/17 mg (*)] Clopidogrel Bisulfate [Plavix (*)] 75 mg PO DAILY 09/17/17 Acetaminophen [Tylenol ES 500 mg 1,000 mg PO Q6 PRN 02/23/18 (*)] Cyanocobalamin [Vitamin B12 (*)] 1,000 mcg PO DAILY 02/23/18 Fluticasone/Salmeter 100/50Mcg 1 puffs IH BID 02/23/18 [Advair 100/50 (*)] Metoprolol Tartrate [Lopressor 25 25 mg PO BID 02/23/18 mg (*)] Medical Decision Making - Diagnostics EKG Interpretation: 12-lead EKG interpreted by me; official reading is in computer system. My interpretation is sinus rhythm rate 57 with borderline nonspecific inferior T- wave flattening Imaging Results: Imaging Impressions Head CT 02/23/18 12:13 Impression: 1. Interval hypodense focus in the left midbrain may represent a subacute to chronic infarct. Would correlate. 2. Changes of chronic microvascular ischemic disease with old lacunar infarcts in the left basal ganglia. Findings and recommendations discussed with RAVI BANSAL at 1225 hour, 2017. Imaging: Discussed imaging studies w/ [facility] Radiologist Differential Diagnosis: Differential considered including but not limited to stroke, TIA, intracranial bleed, seizure, metabolic abnormality, infection Consult/Admit Bed Type: [facility] aleksandra Bernal 1247 - Data Points Laboratory Results: 02/23/18 02/23/18 12:37 12:15 POC Hgb 15.6 gm/dL gm/dL (12.6-16.3) POC Hct 46 % % (38-47) POC Sodium 143 mEq/L mEq/L (135-145) POC Potassium 4.3 mEq/L mEq/L (3.3-5.0) POC Chloride 108 mEq/L mEq/L (97-110) POC BUN 31 mg/dL H mg/dL (7-23) POC Creatinine 1.8 mg/dL H mg/dL (0.6-1.0) POC Glucose 134 mg/dL H mg/dL (70-100) POC Troponin I 0.01 ng/mL ng/mL (0.00-0.08) Point of Care Test Results: Chemistry 02/23/18 02/23/18 12:37 12:15 POC Sodium 143 mEq/L mEq/L (135-145) POC Potassium 4.3 mEq/L mEq/L (3.3-5.0) POC Chloride 108 mEq/L mEq/L (97-110) POC BUN 31 mg/dL H mg/dL (7-23) POC Creatinine 1.8 mg/dL H mg/dL (0.6-1.0) POC Glucose 134 mg/dL H mg/dL (70-100) POC Troponin I 0.01 ng/mL ng/mL (0.00-0.08) ISTAT H&H 02/23/18 12:15 POC Hgb 15.6 gm/dL gm/dL (12.6-16.3) POC Hct 46 % % (38-47) Departure - Departure Disposition: [facility] Inpatient Acute Clinical Impression: Encephalopathy acute Condition: Fair
[2018-02-23 12:37] LABS: PLATELET COUNT 122 10^3/uL (150-400)
[2018-02-23 12:44] LABS: INR 1.07 (0.83-1.16); PROTIME(PATIENT) 14.1 SEC (12.0-15.0)
--- NOTE | 2018-02-23 13:22 | PDGENHP ---
History and Physical - Chief Complaint confusion - History of Present Illness 82 yo female with h/o hypertension, hyperlipidemia and prior CVA presents to ED via EMS from her assisted living facility after she was found wandering in a confused state with possible difficulty speaking. It is unknown when she was last seen normal. CT brain in the ED was negative for hemorrhage or acute infarct. She was evaluated by [facility] in the ED and CTA was deferred due to low suspicion for acute CVA and elevated creatinine. No TpA was recommended. Per chart review, she was hospitalized in 09/2017 for possible TIA. At that time , CTA of the neck showed a small ulcerated carotid plaque. Brain MRI then revealed old occipital and thalamic lacunar infarcts, but no acute stroke. In the past, she was reportedly anticoagulated for h/o CVA, but this was stopped when she developed a retroperitoneal bleed. She was then transitioned to Plavix and this has been continued. She is admitted for further management. History Information - Allergies/Home Medication List Allergies/Adverse Reactions: ibuprofen Allergy (Verified 02/23/18 13:09) Anaphylaxis naproxen [From Aleve] Allergy (Verified 02/23/18 13:09) Anaphylaxis Home Medications: Albuterol [Proventil Inhaler HFA (*)] 1 - 2 puffs IH Q4H PRN 09/17/17 [Last Taken Unknown] Atorvastatin Calcium [Lipitor 40 mg (*)] 40 mg PO HS 09/17/17 [Last Taken ] Clopidogrel Bisulfate [Plavix (*)] 75 mg PO DAILY 09/17/17 [Last Taken 02/23/18] Acetaminophen [Tylenol ES 500 mg (*)] 1,000 mg PO Q6 PRN 02/23/18 [Last Taken Unknown] Cyanocobalamin [Vitamin B12 (*)] 1,000 mcg PO DAILY 02/23/18 [Last Taken ] Fluticasone/Salmeter 100/50Mcg [Advair 100/50 (*)] 1 puffs IH BID 02/23/18 [ Last Taken 02/23/18] Metoprolol Tartrate [Lopressor 25 mg (*)] 25 mg PO BID 02/23/18 [Last Taken 02/02] I have personally reviewed and updated: family history, medical history, social history, surgical history - Past Medical History CVA, hypertension, hyperlipidemia Additional medical history: AAA - 4 cm. CKD stage 3 - Surgical History Reports: no pertinent surgical hx - Family History Positive for: non-pertinent - Social History Smoking Status: Light smoker Alcohol Use: None Drug Use: None Additional social history: Lives at [facility]. Daughter at bedside. Review of Systems Review of Systems: ROS: 10pt was reviewed & negative except for what was stated in HPI & below Physical Exam Physical Exam: Temp Pulse Resp BP Pulse Ox 36.6 C 57 L 14 199/107 H 94 02/23/18 12:23 02/23/18 13:06 02/23/18 13:06 02/23/18 13:06 02/23/18 13:06 Constitutional: no apparent distress Eyes: PERRL Ears, Nose, Mouth, Throat: moist mucous membranes Cardiovascular: regular rate and rhythym Respiratory: no respiratory distress, clear to auscultation Gastrointestinal: normoactive bowel sounds, soft, non-tender abdomen Skin: warm Musculoskeletal: full muscle strength Neurologic: other (mild RLE drift, daughter reports this is baseline. No facial droop, neg pronator drift. AxO x1. Perseverates on name only. Only able to do digits forward to 4 numbers.) Psychiatric: encephalopathic Lab Data & Imaging Review 02/23/18 Unknown 02/23/18 Unknown WBC 6.88 10^3/uL (3.80-9.50) 02/23/18 Unknown RBC 5.01 10^6/uL (4.18-5.33) 02/23/18 Unknown Hgb 14.6 g/dL (12.6-16.3) 02/23/18 Unknown POC Hgb 15.6 gm/dL (12.6-16.3) 02/23/18 12:15 Hct 45.5 % (38.0-47.0) 02/23/18 Unknown POC Hct 46 % (38-47) 02/23/18 12:15 MCV 90.8 fL (81.5-99.8) 02/23/18 Unknown MCH 29.1 pg (27.9-34.1) 02/23/18 Unknown MCHC 32.1 g/dL (32.4-36.7) L 02/23/18 Unknown RDW 14.4 % (11.5-15.2) 02/23/18 Unknown Plt Count 122 10^3/uL (150-400) L 02/23/18 Unknown MPV 9.6 fL (8.7-11.7) 02/23/18 Unknown Neut % (Auto) 67.2 % (39.3-74.2) 02/23/18 Unknown Lymph % (Auto) 24.7 % (15.0-45.0) 02/23/18 Unknown [place] % (Auto) 6.0 % (4.5-13.0) 02/23/18 Unknown Eos % (Auto) 1.5 % (0.6-7.6) 02/23/18 Unknown Baso % (Auto) 0.3 % (0.3-1.7) 02/23/18 Unknown Nucleat RBC Rel Count 0.0 % (0.0-0.2) 02/23/18 Unknown Absolute Neuts (auto) 4.63 10^3/uL (1.70-6.50) 02/23/18 Unknown Absolute Lymphs (auto) 1.70 10^3/uL (1.00-3.00) 02/23/18 Unknown Absolute Monos (auto) 0.41 10^3/uL (0.30-0.80) 02/23/18 Unknown Absolute Eos (auto) 0.10 10^3/uL (0.03-0.40) 02/23/18 Unknown Absolute Basos (auto) 0.02 10^3/uL (0.02-0.10) 02/23/18 Unknown Absolute Nucleated RBC 0.00 10^3/uL (0-0.01) 02/23/18 Unknown Immature Gran % 0.3 % (0.0-1.1) 02/23/18 Unknown Immature Gran # 0.02 10^3/uL (0.00-0.10) 02/23/18 Unknown PT 14.1 SEC (12.0-15.0) 02/23/18 Unknown INR 1.07 (0.83-1.16) 02/23/18 Unknown POC Sodium 143 mEq/L (135-145) 02/23/18 12:15 Sodium 141 mEq/L (135-145) 02/23/18 Unknown POC Potassium 4.3 mEq/L (3.3-5.0) 02/23/18 12:15 Potassium 4.5 mEq/L (3.3-5.0) 02/23/18 Unknown POC Chloride 108 mEq/L (97-110) 02/23/18 12:15 Chloride 108 mEq/L (97-110) 02/23/18 Unknown Carbon Dioxide 24 mEq/l (22-31) 02/23/18 Unknown Anion Gap 9 mEq/L (8-16) 02/23/18 Unknown POC BUN 31 mg/dL (7-23) H 02/23/18 12:15 BUN 33 mg/dL (7-23) H 02/23/18 Unknown Creatinine 1.8 mg/dL (0.6-1.0) H 02/23/18 Unknown POC Creatinine 1.8 mg/dL (0.6-1.0) H 02/23/18 12:15 Estimated GFR 27 02/23/18 Unknown Glucose 135 mg/dL (70-100) H 02/23/18 Unknown POC Glucose 134 mg/dL (70-100) H 02/23/18 12:15 Calcium 9.6 mg/dL (8.5-10.4) 02/23/18 Unknown POC Troponin I 0.01 ng/mL (0.00-0.08) 02/23/18 12:37 Urine Color YELLOW 02/23/18 12:55 Urine Appearance CLEAR 02/23/18 12:55 Urine pH 6.0 (5.0-7.5) 02/23/18 12:55 Ur Specific [place] 1.013 (1.002-1.030) 02/23/18 12:55 Urine Protein NEGATIVE (NEGATIVE) 02/23/18 12:55 Urine Ketones NEGATIVE (NEGATIVE) 02/23/18 12:55 Urine Blood NEGATIVE (NEGATIVE) 02/23/18 12:55 Urine Nitrate POSITIVE (NEGATIVE) H 02/23/18 12:55 Urine Bilirubin NEGATIVE (NEGATIVE) 02/23/18 12:55 Urine Urobilinogen NEGATIVE EU (0.2-1.0) 02/23/18 12:55 Ur Leukocyte Esterase NEGATIVE (NEGATIVE) 02/23/18 12:55 Urine RBC 1-3 /hpf (0-3) 02/23/18 12:55 Urine WBC 3-5 /hpf (0-3) H 02/23/18 12:55 Ur Epithelial Cells NONE SEEN /lpf (NONE-1+) 02/23/18 12:55 Urine Bacteria TRACE /hpf (NONE SEEN) H 02/23/18 12:55 Urine Glucose NEGATIVE (NEGATIVE) 02/23/18 12:55 Visualized and Interpreted Chest x-ray results: Yes Chest X-Ray results: no infiltrate Visualized and Interpreted EKG results: Yes EKG Interpretation: Positive for: normal sinsus rhythm Assessment & Plan Assessment: Acute confusion - Evaluated by Ronny Bird in ED, no TpA or CTA were recommended. MRI shows multiple areas of old infarct in b/l hemispheres, but nothing acute. Discussed with neurology. This may be explained by her microvascular disease. Also consider A fib. Seems less likely the small ulcerated carotid plaque is the source given b/l findings. -Cont Plavix, statin (check lipid status in am, goal LDL <70) -Echo ordered -BP control, goal SBP <140 given no acute CVA. She may have component of hypertensive encephalopathy -will consider LINQ placement prior to d/c for prolonged cardiac monitoring to look for a fib -telemetry monitoring while here -check a1c Hypertension - poor control -add low dose norvasc, up-titrate as indicated -cont home metoprolol Hyperlipidemia - statin AAA - 4 cm per daughter, outpt monitoring CKD stage 3 - Cr 1.8 on arrival, CTA deferred H/O retroperitoneal bleed on anticoagulation within the past year, now on plavix Code status - DNR, discussed with daughter DVT PPLX - [facility] Dispo - obs
[2018-02-23] MEDS ORDERED: ACETAMINOPHEN 325 MG TAB PO PRN (13:23)
[2018-02-23] MEDS ORDERED: ONDANSETRON 4 MG/2 ML VIAL IVP PRN (13:23)
[2018-02-23] MEDS ORDERED: ONDANSETRON DISINTEGRATING 4 MG TAB PO PRN (13:23)
[2018-02-23] MEDS ORDERED: ALBUTEROL 60 PUFFS/8 GM MDI IH PRN (13:27)
--- NOTE | 2018-02-23 15:21 | CPEKG ---
Test Reason : OPEN Blood Pressure : / mmHG Vent. Rate : 057 BPM Atrial Rate : 057 BPM P-R Int : 180 ms QRS Dur : 083 ms QT Int : 443 ms P-R-T Axes : 058 -01 -20 degrees QTc Int : 432 ms Sinus rhythm Borderline T abnormalities, inferior leads Confirmed by Trino Orozco ([id number]) on 02/23/2018 3:21:23 PM Referred By: Confirmed By:Trino Orozco
[2018-02-23] MEDS ORDERED: HALOPERIDOL 0.5 MG TAB PO PRN (16:32)
[2018-02-23] MEDS: HEPARIN 5,000 UNIT/0.5 ML INJ SC SCH ×2 (16:49→23:14)
[2018-02-23] MEDS: hydrALAZINE 10 MG TAB PO PRN (16:51)
[2018-02-23] MEDS: FLUTICASONE/SALMETER 100/50MCG DISKUS IH SCH (21:06)
[2018-02-23] MEDS: ATORVASTATIN CALCIUM 40 MG TAB PO SCH (21:06)
[2018-02-23] MEDS: METOPROLOL TARTRATE 25 MG TAB PO SCH (21:07)
[2018-02-24] MEDS: hydrALAZINE 10 MG TAB PO PRN (03:41)
[2018-02-24] MEDS: HEPARIN 5,000 UNIT/0.5 ML INJ SC SCH ×3 (05:47→22:14)
[2018-02-24] MEDS: FLUTICASONE/SALMETER 100/50MCG DISKUS IH SCH ×2 (09:35→22:43)
[2018-02-24] MEDS: amLODIPine BESYLATE 5 MG TAB PO SCH (09:42)
[2018-02-24] MEDS: CLOPIDOGREL BISULFATE 75 MG TAB PO SCH (09:43)
[2018-02-24] MEDS: CYANO/VITAMIN B12 1000 MCG TAB PO SCH (09:43)
[2018-02-24] MEDS: METOPROLOL TARTRATE 25 MG TAB PO SCH ×2 (09:43→22:14)
--- NOTE | 2018-02-24 09:56 | NEUROPROG ---
Assessment: [id number] - Neurology Consult: - CC: Dr. Malinda Bernal consulted neurology for confusion. Results placed in EMR for her review. - Narrative Summary: Patient seen initially on 09/18/17 for confusion. The patient was a [facility] resident with a prior stroke. It was reported she was on warfarin for this but in June 2017 had a retroperitoneal bleed so was changed to Plavix. She was noted to be confused on 09/17/17 so was brought to [facility] ER. A head CT and CTA head /neck showed no acute changes but telemetry did show afib/aflutter. The patient cannot recall being confused and did not appear confused in the ER but her daughter reported she did not seem to be at her baseline. She had no focal neurologic deficits. Pt initially seen on 09/18/17. She reported her confusion had resolved and she now felt back to normal. Her telemetry indicated she had bouts of atrial fibrillation. Her neurologic exam on 09/18/17 was non-focal. I ordered a brain MRI w/o con to further evaluate her confusion. Brain MRI showed no stroke or acute changes and TTE was generally unremarkable. Unclear cause of confusion but patient was noted on telemetry to possibly be in afib at times. The confusion may have been a TIA, acute confusional state (possibly form bradycardia), or from a cryptogenic cause. It had resolved. I recommended changing the patient from plavix to anticoagulation if afib was confirmed (given prior strokes). Pt told to f/u in neurology clinic 1-4 weeks after hospital discharge. - HPI: Pt admitted to [facility] for a recurrent spell of confusion (admitted on 09/18/17 for confusion as well, brain MRI neg at that time for stroke). Brain MRI and carotid U/S unremarkable for cause. CTA not done due to elevated Cr. I initially saw the patient on 02/24/18. Neurologic exam was nonfocal but patient did not know her location, age, or date. 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 Treatment is supportive. Pt was possibly reported to be in afib at last hospitalization so I discussed with her daughter (POA) the utility of getting a LINQ to assess for afib. As the patient had a previous bleed on anticoagulation, the daughter and I felt the risk of recurrent hemorrhage and risk of placing LINQ monitor seemed to great to consider given these treatments will not improve her vascular dementia. Pts daughter will call me if she changes her mind. No further neurologic w/u needed at this time. - PMHx: chronic renal disease, HLD, AAA, stroke, retroperitoneal bleed on warfarin in June 2017 - SHx: lives in [facility]f FHx: daughter alive - ROS: Pt denied acute fever, total vision loss, active severe chest pain, respiratory failure, total body severe rash, total bowel/bladder incontinence, psychosis, active seizures, or active bleeding - O: VS reviewed General: Alert Eyes: Fundoscopic exam not able to visualize optic disks CV: Heart RRR, no murmur, no carotid bruit Lungs: Clear to auscultation bilaterally, no rhonchi or rales Neuro: - Mental: . Oriented x person but not place/date . concentration appears normal . speech fluency/comprehension normal . memory appears normal . fund of knowledge appear intact - Cranial Nerves: . II: PERRL, VFFTC . III/IV/: EOMI, no nystagmus, normal smooth pursuits, no Ptosis . V: facial sensation intact to LT . VII: face symmetric to eye closure and smile . VIII: hearing intact to conversation . IX/X: uvula raises symmetrically . XI: SCM 5/5 B/L strength . XII: tongue protrudes midline w/nl strength - Motor: . Tone: normal tone in all 4 extremity . Strength: no pronator drift, strength 5/5 throughout (B/L delt, bic, tri, hand programs manager, hf/he, df/pf) - Reflexes: B/L bic/BR/patella 2/4 - Sensory: all 4 extremity intact to light touch - Coord: [id number] wnl, RICCARDO wnl, [id number] wnl - Gait: deferred - Labs: 09/17/17- CBC Plt 129L, Chem BUN 27H Ct 1.7H 09/18/17- H1AC 5.5, LDL 40L 02/23/18- H1AC 5.5 02/24/18- LDL 41L - Rads: 09/17/17- CTA head/neck: no significant carotid stenosis, small ulcerated plaque in L carotid bulb 09/17/17- Telemetry: afib/aflutter 09/17/17- TTE: EF 65-70%, no cardiac thrombus reported 09/18/17- Brain MRI w/o con: mild atrophy, no acute stroke or changes, old R occipital cortical CVA and old R thalamic lacunar CVA, severe CMVD - 02/23/18- Brain MRI wo: Old lacunar infarct left side of the dariana, bilateral cerebellar hemispheres, bilateral thalami, and bilateral basal ganglia. No definite acute infarct, acute hemorrhage, hydrocephalus, mass effect, or herniation. Mild cerebral atrophy. severe microvascular ischemic gliosis, Old infarct right occipital lobe. (I personally visualized the images on 02/24/18) - 02/23/18- Carotid U/S: some atherosclerosis but < 50% in each carotid artery - Assessment: 1. 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 Treatment is supportive. - 2. Possible Atrial fibrillation: Pt was possibly reported to be in afib at last hospitalization so I discussed with her daughter (POA) the utility of getting a LINQ to assess for afib. As the patient had a previous bleed on anticoagulation , the daughter and I felt the risk of recurrent hemorrhage and risk of placing LINQ monitor seemed too great to consider given these treatments will not improve her vascular dementia. Pts daughter will call me if she changes her mind. - 3. Multiple old strokes seen on brain MRI on 02/23/18: continue current dosing of Plavix 75 mg qd. She requires lifelong stroke risk factor modification: blood pressure < 140/90, H1AC < 7.0, LDL < 70 - Plan: - Continue Plavix 75 mg qd for stroke prevention - PT/OT consult for any rehab needs - LDL goal < 70 (41), continue Lipitor 40 mg qd - H1AC goal < 7.0 (5.5) - Blood pressure goal < 140/90 - F/U in neurology clinic 1-5 weeks after hospital discharge Objective: Vital Signs Temp Pulse Resp BP Pulse Ox 36.8 C 72 18 176/94 H 96 02/24/18 07:59 02/24/18 09:37 02/24/18 09:37 02/24/18 07:59 02/24/18 09:37 Laboratory Results 02/23/18 Unknown 02/23/18 Unknown 02/23/18 02/24/18 02/25/18 05:59 05:59 05:59 Intake Total 550 Output Total 500 Balance 50 PT 14.1 SEC (12.0-15.0) 02/23/18 Unknown INR 1.07 (0.83-1.16) 02/23/18 Unknown Allergies/Adverse Reactions: ibuprofen Allergy (Verified 02/23/18 13:09) Anaphylaxis naproxen [From Aleve] Allergy (Verified 02/23/18 13:09) Anaphylaxis
--- NOTE | 2018-02-24 11:54 | ECHO ---
[email or web address] [address] [address] Main: [phone] Fax: [email or web address] Echocardiogram Name: ANGELES AGOSTO MR#: [id number] Study Date: 02/24/2018 Study Time: 10:22 AM Date of : 1935 Age: 82 year(s) Height: 162.6 cm (64 in.) Weight: 53.52 kg (118 lb.) BSA: 1.56 m2 Gender: Female Examination: Echo Indication: CVA/possible history of A fib Image Quality: Excellent Contrast: Requested by: Malinda Bernal BP: 176 mmHg/94 mmHg Heart Rate: Rhythm: Indication: CVA/possible history of A fib Procedure Staff Ships Equipment Engineer: Kaleigh Gray RDCS Reading Physician: Emanuel Jackson MD Requesting Provider: Conclusions: Normal global systolic LV function. EF is 69 %. Mild mitral valve regurgitation is present. Mild aortic valve regurgitation is present. Mild tricuspid regurgitation is present. RVSP is 41mmHG.. Question dilated abdominal aorta measuring 4.7 cm. Compared to the previous study of 09/18/17, the RVSP has improved from 67mmHG.. Measurements: Chambers Valvular Assessment AV/MV Valvular Assessment TV/PV Normal Normal Normal Name Value Range Name Value Range Name Value Range Ao [place] (MM): 3.0 cm (2.2 cm-3.7 AV Vmax: 1.24 m/s (1 m/s-1.7 TR Vmax: 2.98 mm/s ( - ) cm) m/s) TR PGmax: 36 mmHg ( - ) IVSd (2D): 0.8 cm (0.6 cm-1.1 AV meanP mmHg ( - ) syst. PAP: 41 mmHg ( - ) cm) AR (PHT): 853 ms ( - ) LVDd (2D): 4.3 cm (3.9 cm-5.3 MV E Vmax: 0.61 m/s ( - ) cm) MV A Vmax: 0.62 m/s ( - ) LVDs (2D): 2.7 cm (2.1 cm-4 MV E/A: 0.98 ( - ) cm) LVPWd (2D): 0.8 cm ( - ) LVEF (BP): 69 % (>=55 %) Continued Measurements: Chambers Valvular Assessment AV/MV Valvular Assessment TV/PV Name Value Name Value Name Value LADs: 3.2 cm MV E' Septal: 0.05 m/s CVP (est.): 5 mmHg Patient: ANGELES AGOSTO Study Date: 02/24/2018 Page 1 of 2 10:22 AM LADs Lon.1 cm MV E/E' Septal: 11.20 LA Area: 17.2 cm2 MV E/E' Lateral: 10.00 LA Volume: 49 ml AR Vmax: 4.74 cm/s LA Volume Index: 31.4 ml/m2 Findings: Left Ventricle: Normal size left ventricle. Borderline concentric LV hypertrophy. Normal global systolic LV function. EF is 69 %. No regional wall motion abnormality. Diastolic dysfunction is present. . Right Ventricle: Normal size right ventricle. Left Atrium: The left atrium is normal in size. Right Atrium: The right atrium is normal in size. Mitral Valve: Mild mitral valve regurgitation is present. Mildly calcified anterior mitral leaflet.. Aortic Valve: The aortic valve is normal in appearance and function. Mild aortic valve regurgitation is present. Tricuspid Valve: The tricuspid valve is normal in appearance and function. Mild tricuspid regurgitation is present. The pulmonary artery pressure is mildly increased. RVSP is 41mmHG.. Pulmonic Valve: The pulmonic valve is normal in appearance and function. Aorta: The aorta is normal. Pericardium: No pericardial effusion. There is pericardial fat. Exam Comments: Question dilated abdominal aorta measuring 4.7 cm. Compared to the previous study of 09/18/17, the RVSP has improved from 67mmHG.. (No Signature Object) Patient: ANGELES AGOSTO Study Date: 02/24/2018 Page 2 of 2 10:22 AM [id number]
--- NOTE | 2018-02-24 12:03 | ASMTCMCOM ---
CM Note CM Note Notes: Pt was brought into ER after her AL ([place]) found her walking in the halls confused. She has had a cva in the past, per her daughter, she had been with her recently. They shopped and had lunch, everything seemed normal, although she did notice that it took her mother a long time to decide on lunch. It was as if she was overwhelmed by the menu, which seemed unusual. Per daughter, she gets homecare through [place], she has a nurse who sets up her medications and for foot care. PT/OT therapies pending, [employer] does recommend homecare, CM w/f. DC Plan: TBD Date Signed: 02/24/2018 12:02 PM Electronically Signed By:Mariola Perales RN
--- NOTE | 2018-02-24 15:32 | HOSPPROG ---
Hospitalist Progress Note Assessment/Plan: Acute confusion - thought 2/2 cerebrovascular disease and cognitive decline with sundowning and acute confusional state. Discussed with Neurology. MRI shows multiple old infarcts, nothing acute. -cont plavix, statin (LDL 41) -cont telemetry monitoring -discussed LINQ implantation prior to dc, daughter declines citing she would not was anticoagulation given recent dramatic bleeding event on AC Possible UTI - minimal pyuria, no fevers and no symptoms -Ceftriaxone started last night, will d/c tomorrow if Cx remains negative Hypertension - improved, but still not at goal -increase norvasc -cont home metoprolol Hyperlipidemia - statin AAA - outpt monitoring, pt has previously declined surgical options CKD stage 3 - Cr 1.8 on arrival, CTA deferred H/O retroperitoneal bleed on anticoagulation within the past year, now on plavix Code status - DNR, discussed with daughter DVT PPLX - ROSA MARIA Dispo - change to inpt for ongoing management of acute confusional state and therapy / cog evals. CM working on placement options. Subjective: Pt doing better. She is more alert. Denies rollins, vision changes, CP or SOB. No fevers/chills or urinary symptoms. Objective: Vital Signs Temp Pulse Resp BP Pulse Ox 36.7 C 53 L 19 124/84 H 93 02/24/18 12:00 02/24/18 12:00 02/24/18 12:00 02/24/18 12:00 02/24/18 12:00 Laboratory Results 02/23/18 Unknown 02/24/18 05:45 02/23/18 02/24/18 02/25/18 05:59 05:59 05:59 Intake Total 550 Output Total 500 Balance 50 PT 14.1 SEC (12.0-15.0) 02/23/18 Unknown INR 1.07 (0.83-1.16) 02/23/18 Unknown - Physical Exam Constitutional: no apparent distress Eyes: PERRL Ears, Nose, Mouth, Throat: moist mucous membranes Cardiovascular: regular rate and rhythym Respiratory: no respiratory distress, clear to auscultation Gastrointestinal: normoactive bowel sounds, soft, non-tender abdomen Skin: warm Musculoskeletal: full muscle strength Psychiatric: poor memory ICD10 Worksheet Patient Problems: Problems Problem Status Onset Encephalopathy acute Acute TIA (transient ischemic attack) Acute
[2018-02-24] MEDS: ATORVASTATIN CALCIUM 40 MG TAB PO SCH (22:15)
[2018-02-25] MEDS: HEPARIN 5,000 UNIT/0.5 ML INJ SC SCH ×3 (06:19→22:08)
[2018-02-25] MEDS: amLODIPine BESYLATE 5 MG TAB PO SCH (08:06)
[2018-02-25] MEDS: CLOPIDOGREL BISULFATE 75 MG TAB PO SCH (08:07)
[2018-02-25] MEDS: CYANO/VITAMIN B12 1000 MCG TAB PO SCH (08:07)
[2018-02-25] MEDS: METOPROLOL TARTRATE 25 MG TAB PO SCH ×2 (08:07→22:08)
[2018-02-25] MEDS: FLUTICASONE/SALMETER 100/50MCG DISKUS IH SCH ×2 (08:42→21:04)
--- NOTE | 2018-02-25 13:55 | HOSPPROG ---
Hospitalist Progress Note Assessment/Plan: Acute confusion - thought 2/2 cerebrovascular disease and cognitive decline with sundowning and acute confusional state. Discussed with Neurology. MRI shows multiple old infarcts, nothing acute. -cont plavix, statin (LDL 41) -cont telemetry monitoring -discussed LINQ implantation prior to dc, daughter declines citing she would not was anticoagulation given recent dramatic bleeding event on AC Possible UTI - minimal pyuria, no fevers and no symptoms -Ceftriaxone started, will d/c tomorrow if Cx remains negative Hypertension - improved with increased norvasc dose -cont home metoprolol plus norvasc Hyperlipidemia - statin AAA - outpt monitoring, pt has previously declined surgical options CKD stage 3 - Cr 1.8 on arrival, CTA deferred, Cr has trended back down near baseline of 1.6 H/O retroperitoneal bleed on anticoagulation within the past year, now on plavix Code status - DNR, discussed with daughter, Sania, who is MDPOA DVT PPLX - ROSA MARIA Dispo - cont inpt, anticipate SNF based on PT eval noting balance issues and gait instability, along with cognitive impairment. Anticipate d/c to SNF possibly tomorrow if [place] approves Subjective: Pt doing well. No rollins, vision changes, CP or SOB. No fevers/chills or urinary symptoms. Eating well. No complaints. Objective: Vital Signs Temp Pulse Resp BP Pulse Ox 36.4 C 49 L 17 122/77 H 93 02/25/18 12:21 02/25/18 12:21 02/25/18 12:21 02/25/18 12:21 02/25/18 12:21 Laboratory Results 02/23/18 Unknown 02/25/18 05:23 02/24/18 02/25/18 02/26/18 05:59 05:59 05:59 Intake Total 550 700 Output Total 500 Balance 50 700 PT 14.1 SEC (12.0-15.0) 02/23/18 Unknown INR 1.07 (0.83-1.16) 02/23/18 Unknown - Physical Exam Constitutional: no apparent distress Eyes: PERRL Ears, Nose, Mouth, Throat: moist mucous membranes Cardiovascular: regular rate and rhythym Respiratory: no respiratory distress, clear to auscultation Gastrointestinal: normoactive bowel sounds, soft, non-tender abdomen Skin: warm Musculoskeletal: full muscle strength Neurologic: AAOx3 Psychiatric: interacting appropriately, poor insight, poor memory ICD10 Worksheet Patient Problems: Problems Problem Status Onset TIA (transient ischemic attack) Acute Encephalopathy acute Acute
--- NOTE | 2018-02-25 15:20 | ASMTCMCOM ---
CM Note CM Note Notes: sent a referral to [facility]. [facility] initially denied pt for SNF but therapies are recommending SNF today. Updated therapy notes sent to [facility]. Awaiting response from [facility] regarding SNF approval. The [facility] MD spoke to Dr. Bernal regarding pt plan of care. CM to follow. Date Signed: 02/25/2018 03:20 PM Electronically Signed By:RITU Moody
--- NOTE | 2018-02-25 16:32 | ASMTCMCOM ---
CM Note CM Note Notes: [facility] [phone]; referral sent to [facility] in [facility]. Date Signed: 02/25/2018 04:31 PM Electronically Signed By:MERLENE Luong
[2018-02-25] MEDS: ATORVASTATIN CALCIUM 40 MG TAB PO SCH (22:08)
[2018-02-26] MEDS: HEPARIN 5,000 UNIT/0.5 ML INJ SC SCH ×2 (05:05→15:09)
[2018-02-26] MEDS: CLOPIDOGREL BISULFATE 75 MG TAB PO SCH (08:59)
[2018-02-26] MEDS: amLODIPine BESYLATE 5 MG TAB PO SCH (08:59)
[2018-02-26] MEDS: METOPROLOL TARTRATE 25 MG TAB PO SCH (08:59)
[2018-02-26] MEDS: CYANO/VITAMIN B12 1000 MCG TAB PO SCH (08:59)
[2018-02-26] MEDS: FLUTICASONE/SALMETER 100/50MCG DISKUS IH SCH (09:10)
[2018-02-26 11:42] VITALS: BP 161/78
--- NOTE | 2018-02-26 12:33 | PDIAF ---
- Diagnosis Diagnosis: vascular dementia, h/o CVA Code Status: Do Not Resuscitate - Medication Management Discharge Medications: Medications to Continue on Transfer Albuterol [Proventil Inhaler HFA (*)] 1 - 2 puffs IH Q4H PRN 09/17/17 [Last Taken Unknown] Atorvastatin Calcium [Lipitor 40 mg (*)] 40 mg PO HS 09/17/17 [Last Taken ] Clopidogrel Bisulfate [Plavix (*)] 75 mg PO DAILY 09/17/17 [Last Taken 02/23/18] Acetaminophen [Tylenol ES 500 mg (*)] 1,000 mg PO Q6 PRN 02/23/18 [Last Taken Unknown] Cyanocobalamin [Vitamin B12 (*)] 1,000 mcg PO DAILY 02/23/18 [Last Taken ] Fluticasone/Salmeter 100/50Mcg [Advair 100/50 (*)] 1 puffs IH BID 02/23/18 [ Last Taken 02/23/18] Metoprolol Tartrate [Lopressor 25 mg (*)] 25 mg PO BID 02/23/18 [Last Taken 02/02] amLODIPine BESYLATE [Norvasc 10 mg (*)] 10 mg PO DAILY #30 tab 02/26/18 [Last Taken Unknown] Discharge Medications: Refer to the Discharge Home Medication list for PRN reason. PICC Care - Routine: N/A - Orders Services needed: Registered Nurse, Physical Therapy, Occupational Therapy Diet Recommendation: sodium restricted Additional Instructions: Follow up with neurology in 1-2 weeks. Follow up with primary care. - Follow Up Care Current Providers and Referrals: Patient,NotPresent [Unknown] - As per Instructions Edward Wheeler DO [Medical Doctor] -
--- NOTE | 2018-02-26 14:45 | GDS ---
DISCHARGE DIAGNOSES: 1. Transient confusion thought secondary to cerebrovascular disease. 2. Vascular dementia. 3. History of cerebrovascular accident. 4. Hypertension. 5. Hyperlipidemia. 6. Abdominal aortic aneurysm, for which the patient has previously declined surgical options. 7. Chronic kidney disease stage 3, with a baseline creatinine of approximately 1.6. 8. History of retroperitoneal bleed while on anticoagulation, which has since been discontinued. CONSULTANTS: Dr. Edward Wheeler, neurology. HISTORY: For details, please see history and physical dated February 23, 2018. In brief, the patient is an 82-year-old female with a history of prior CVA and vascular dementia, who presented to the [facility] department with confusion. She was admitted to the hospital for further management. HOSPITAL COURSE: Patient was admitted to the cardiac telemetry unit. She was evaluated by [facility] in the emergency department. No tPA or CTA were recommended given her elevated creatinine. MRI was performed, which showed multiple areas of old infarct in bilateral hemispheres, but nothing acute. Neurology consult was obtained and felt her confusion was likely secondary to cerebrovascula r disease with prior strokes. He recommended continuing Plavix and statin, as well as blood pressure control. I discussed with her daughter, who is her medical power of assistant attorney general, placing a LINQ monito r for ongoing cardiac monitoring to look for atrial fibrillation. However, her daughter declines thi s given the fact that she had a large retroperitoneal bleed while on anticoagulation within the past year. She felt that they would not proceed with anticoagulation regardless of the findings of a LINQ monitor, and therefore, this was not pursued. She had suboptimal blood pressure control on arrival. She was continued on her home metoprolol. Norvasc was added and was uptitrated to 10 mg daily on t he day of discharge. She will also continue on her statin. As above, regarding her abdominal aortic aneurysm, an echocardiogram revealed this to be approximately 4.7 cm. The patient is asymptomatic. Again, she has declined surgical options in the past. She was evaluated by PT, OT, and speech thera py services. She was noted to have significant cognitive impairment. In addition, she had gait imba enid, and SNF rehab was recommended. DISPOSITION: [facility]. FOLLOWUP: 1. Dr. Arnulfo Wheeler, Neurology, in 1-2 weeks. 2. Primary care. DISCHARGE MEDICATIONS: Please see [employer] for completed outpatient medication list. New medication s on discharge include amlodipine 10 mg p.o. daily, #30, no refills. She will continue all other out patient medications as previously prescribed, including Plavix 75 mg p.o. daily, atorvastatin 40 mg p .o. q.h.s., metoprolol 25 mg p.o. b.i.d., Tylenol 1000 p.o. q.6 hours p.r.n., Advair 100/50 inhaled b .i.d., albuterol 1-2 puffs inhaled q.4 hours p.r.n., and vitamin B12. /[id number]/MODL
--- NOTE | 2018-02-26 14:45 | ASMTLACE ---
ASH[facility] Length of stay for Answers: 3 days current admission Acuity / Level of Answers: Yes Care: Did the patient have an inpatient admission? Comorbidities - select Answers: Cerebrovascular disease all that apply (CVA, TIA, aneurysms, vasc ular dementia) Chronic pulmonary disease Moderate or severe liver or renal disease Other Notes: current AAA # of Emergency department Answers: 1-2 visits in the last 6 months Score: 15 Date Signed: 02/26/2018 02:44 PM Electronically Signed By:MERLENE Luong
--- NOTE | 2018-02-26 14:47 | ASMTCMCOM ---
CM Note CM Note Notes: Pt medically stable for d/c to [facility]. WC transport scheduled with [facility] by Taryn with [facility]. Orders sent in [employer]. TONIO Donald to call report. Pt son at [facility] and updated. Date Signed: 02/26/2018 02:46 PM Electronically Signed By:MERLENE Luong
== END 2018-02-26 17:05 | DRG 948 ==
LOC: EDUNIT# → SUPCPDRO 12:10 → F3N 14:49 → OBSVTOIN 02-25 14:52
PROVIDERS: ADMIT Hospitalist; ATTEND Hospitalist
DX: R41.0 Disorientation, unspecified (principal); I67.9 Cerebrovascular disease, unspecified; F01.50 Vascular dementia, unspecified severity, without behavioral disturbance, psychotic disturbance, mood disturbance, and anxiety; I71.4 Abdominal aortic aneurysm, without rupture; I12.9 Hypertensive chronic kidney disease with stage 1 through stage 4 chronic kidney disease, or unspecified chronic kidney disease; N18.3 Chronic kidney disease, stage 3 (moderate); J44.9 Chronic obstructive pulmonary disease, unspecified; E78.5 Hyperlipidemia, unspecified; Z79.01 Long term (current) use of anticoagulants; Z86.73 Personal history of transient ischemic attack (TIA), and cerebral infarction without residual deficits; F17.210 Nicotine dependence, cigarettes, uncomplicated; Z66 Do not resuscitate; Z23 Encounter for immunization
CPT/HCPCS: 82435-PO; 82565-PO; 82947-PO; 84132-PO; 84295-PO; 84484-PO; 84520-PO; 85014-PO; 92507-GN; 92523-GN; 97116-GP; 97161-GP; 97166-GO; 97530-GO; 97535-GO; G0008; G0378; G8987-GO-CJ; G8988-GO-CI; J0696; J1644